=== PATIENT | female | born 1995 | race Caucasian/White ===

== ENCOUNTER → 2017-03-02 | Outpatient (CLI) | payer BC ==
--- NOTE | 2017-03-02 11:16 | RADRPT ---
PROCEDURE: XR Right hip and pelvis. CLINICAL INDICATION: Right hip pain. Pelvic pain. Postop. TECHNIQUE: Three views. Frontal pelvis. Frontal and lateral right hip. COMPARISON: No prior studies are available for comparison. FINDINGS: There is no fracture or dislocation. The soft tissues are normal. There is a right hip hemiarthroplasty which appears satisfactory. The left hip is grossly normal. There is no lytic or blastic lesion. The upper pelvis is not completely included on the image. IMPRESSION: 1. Satisfactory postoperative appearance of the right hip. 2. Grossly normal appearance of the left hip. RPTAT: QQ .Shane Gonzalez MD, MD Date Time Electronically viewed and signed by .Shane Gonzalez MD, MD on 03/02/2017 11:16 .R/
--- NOTE | 2017-03-02 11:17 | RADRPT ---
PROCEDURE: XR Right Femur. CLINICAL INDICATION: Right leg pain. TECHNIQUE: AP and lateral views of the right femur were performed. COMPARISON: None. FINDINGS: There is a right hip hemiarthroplasty which appears satisfactory. There is no fracture or dislocation. The right knee is grossly normal. There is no lytic or blastic lesion. IMPRESSION: 1. Satisfactory postoperative appearance of the right hip. 2. Otherwise normal images of the right femur. RPTAT: QQ .Shane Gonzalez MD, MD Date Time Electronically viewed and signed by .Shane Gonzalez MD, MD on 03/02/2017 11:16 .R/
== END | disposition home or self-care (01) ==
LOC: HKI 08:40
PROVIDERS: ATTEND Orthopaedic Surgery
DX: Z47.1 Aftercare following joint replacement surgery (principal); Z96.641 Presence of right artificial hip joint; M25.551 Pain in right hip
CPT/HCPCS: 73502; 73552